=== PATIENT | female | born 1955 | race Caucasian/White ===

== ENCOUNTER → 2016-10-03 | Outpatient (CLI) | payer BC ==
[~2016-10-03] MED LIST: AMOX1TAB43 PO; ATV5 PO; FENO160T PO; GABA800T PO; LEVO125T72 PO; MONT1TAB3 PO; ZLF/50 PO
--- NOTE | 2016-10-04 15:40 | MAMMOGRAPHY REPORT ---
BILATERAL DIGITAL SCREENING MAMMOGRAM TOMOSYNTHESIS WITH CAD: 10/03/2016 CLINICAL HISTORY: Routine screening. Patient has no complaints. TECHNIQUE: Breast tomosynthesis in addition to standard 2D mammography was performed. Current study was also evaluated with a Computer Aided Detection (CAD) system. COMPARISON: Comparison is made to exams dated: 09/21/2009 mammogram and 09/24/2005 mammogram - [facility]. BREAST COMPOSITION: The tissue of both breasts is heterogeneously dense, which may obscure small ma sses. FINDINGS: There is a possible 6 mm mass seen within the left central breast, best seen on the tomosy nthesis images, for which spot compression tomosynthesis views and possible breast ultrasound are re commended for further evaluation. The remainder of both breasts are stable compared to prior exams, without suspicious masses, calcifi cations, or areas of architectural distortion noted. IMPRESSION: ACR BI-RADS CATEGORY 0: INCOMPLETE EVALUATION: NEED ADDITIONAL IMAGING EVALUATION Possible left breast mass, for which additional imaging evaluation is recommended. The patient will be called to schedule an appointment. Approximately 10% of breast cancers are not detected with mammography. A negative mammographic repor t should not delay biopsy if a clinically suggestive mass is present. Halle Marin M.D. ah/:10/03/2016 16:33:18 Window Installation Subcontractor: rTista SALCEDO(Tash)(M), [facility] letter sent: Addl Imaging 0 BI-RADS Code: ACR BI-RADS Category 0: Incomplete Evaluation: Need Additional Imaging Evaluation
--- NOTE | 2016-10-07 10:48 | CODING QUERY MEDICAL NECESSITY ---
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 Please provide a supporting diagnosis for the following test/procedure listed below next to the test name along with your signature. *If there is no additional diagnosis for this patient that would support the following test/procedure please document that below next to the test/procedure. Test(s)/Procedure(s) that require a supporting diagnosis: * ([id number]) DXA BONE DENSITY, AXIAL DIAGNOSIS: DATE OF SERVICE: 10/03/16 Provider Signature: Date: Thank you Hawk Carrasco [facility] Information Management Once completed, please kindly fax back to [phone] For questions please call [phone]
== END | disposition home or self-care (01) ==
LOC: C.MAMM 11:14
PROVIDERS: ATTEND Nurse Practitioner Family
DX: Z12.31 Encounter for screening mammogram for malignant neoplasm of breast (principal); N63 Unspecified lump in breast; Z13.820 Encounter for screening for osteoporosis

== ENCOUNTER → 2016-10-11 | Outpatient (CLI) | payer BC ==
--- NOTE | 2016-10-11 15:07 | MAMMOGRAPHY REPORT ---
UNILATERAL LEFT DIGITAL DIAGNOSTIC MAMMOGRAM TOMOSYNTHESIS AND TARGETED LEFT ULTRASOUND: 10/11/2016 CLINICAL HISTORY: Callback from screening mammogram for left breast mass. TECHNIQUE: Breast tomosynthesis in addition to standard 2D mammography was performed. Spot tasia ian left CC and MLO tomosynthesis images including C views were obtained. COMPARISON: Comparison is made to exams dated: 10/03/2016 mammogram, 09/21/2009 mammogram, and 09/25/19 06 mammogram - [facility]. BREAST COMPOSITION: The tissue of the left breast is heterogeneously dense, which may obscure small masses. FINDINGS: Spot compression views demonstrate a persistent oval partially circumscribed and partiall y obscured 6 mm mass seen within the left central/6:00 breast. Targeted ultrasound was performed of the left central/6:00 breast. In the left breast at 6:00, 1 cm from the nipple, there is an oval a nechoic circumscribed mass which measures 5 x 5 mm. This is felt to correspond with the mammographi c mass and is consistent with a benign simple cyst. Other smaller cysts were seen during the exam, including a circumscribed 3 mm anechoic cyst and a circumscribed hypoechoic 3 mm cyst in the left fuentes perior subareolar region. No suspicious masses are evident. IMPRESSION: ACR BI-RADS CATEGORY 2: BENIGN, TARGETED ULTRASOUND ACR BI-RADS CATEGORY 2: BENIGN Benign 5 mm simple cyst in the left breast at 6:00 on ultrasound, which corresponds with the mammogr aphic mass. There is no mammographic or targeted sonographic evidence of malignancy. A 1 year scree margaret mammogram is recommended. The patient has been verbally notified of the results. Approximately 10% of breast cancers are not detected with mammography. A negative mammographic repor t should not delay biopsy if a clinically suggestive mass is present. Halle Marin M.D. /:10/11/2016 12:03:15 Derrick Man: Trista Child, [facility] letter sent: Normal 1/2 BI-RADS Code: ACR BI-RADS Category 2: Benign Ultrasound BI-RADS: ACR BI-RADS Category 2: Benign
== END | disposition home or self-care (01) ==
LOC: C.MAMM 10:47
PROVIDERS: ATTEND Nurse Practitioner Family
DX: N63 Unspecified lump in breast (principal)

== ENCOUNTER → 2017-04-09 | Outpatient (CLI) | payer BC ==
--- NOTE | 2017-04-09 17:27 | DIAGNOSTIC IMAGING REPORT ---
CT SCAN OF THE ABDOMEN AND PELVIS WITHOUT IV CONTRAST CLINICAL HISTORY: Left lower quadrant abdominal pain. COMPARISON STUDY: Abdominal CT dated 06/13/2016. TECHNIQUE: CT scan of the abdomen and pelvis is performed from the lung bases to the proximal femora. Images are reviewed in the axial, sagittal, and coronal planes. IV contrast was not administered for this examination as per the referring clinician. Note that the examination was performed in suboptimal fashion without IV contrast. Oral contrast was utilized. The examination is also degraded by streak artifact from the neurostimulator device. A dose lowering technique was utilized adhering to the principles of ALARA. CT DOSE: 543.11 mGy.cm FINDINGS: Lung bases: The heart is normal in size and there is trace pericardial fluid. The lung bases are clear noting mild basilar atelectasis. Liver: The unenhanced liver is normal in size, contour, and attenuation. There is no intrahepatic biliary ductal dilatation. Hepatic cysts measure up to 1.8 cm. Additional subcentimeter hepatic hypodensities also likely represent cysts but are too small for definitive characterization. Gallbladder: Unremarkable. Spleen: Evaluation of the spleen is degraded by streak artifact. Normal in size and attenuation. Pancreas: The unenhanced pancreas is atrophic and grossly unremarkable. Adrenal glands: Unremarkable. Kidneys: The unenhanced kidneys demonstrate cortical atrophy and are without hydronephrosis. A 6 mm nonobstructing calculus is present in the left lower pole. No right renal calculi are identified. There is no evidence of contour deforming renal mass lesion. Abdominal vasculature: The abdominal aorta is normal in course and caliber noting moderate atherosclerotic calcification. Bowel: There is mild colonic diverticulosis without CT evidence of acute diverticulitis. There is mild colonic fecal retention. No bowel obstruction is seen. The appendix is well-visualized and normal. Peritoneum: There is no intraperitoneal free air or abdominal ascites. There is a small fat-containing umbilical hernia. Lymphadenopathy: None. Pelvic viscera: The bladder, uterus, and adnexa are normal as visualized. Skeletal structures: The skeletal structures are osteopenic. No lytic or blastic lesions are seen. A neurostimulator device is present in the soft tissues of the left lower back. Leads enter the central canal at the thoracolumbar junction. IMPRESSION: 1. Suboptimal examination without IV contrast. 2. There are no acute infectious or inflammatory findings in the abdomen or pelvis. 3. Mild colonic diverticulosis without CT evidence of acute diverticulitis. 4. Nonobstructing left renal calculus. 5. Additional findings as above. Electronically signed by: Berry Vegas M.D. 04/09/2017 5:26 PM Dictated Date/Time: 04/09/2017 5:18 PM
== END | disposition home or self-care (01) ==
LOC: C.CTS 14:48
PROVIDERS: ATTEND Colon & Rectal Surgery
DX: K57.92 Diverticulitis of intestine, part unspecified, without perforation or abscess without bleeding (principal); K57.30 Diverticulosis of large intestine without perforation or abscess without bleeding; N20.0 Calculus of kidney

== ENCOUNTER 2019-01-05 17:05 | Inpatient (IN) ==
[2019-01-05] MEDS ORDERED: SODIUM CHLORIDE 0.9% 1000ML 1,000 ML IV ONE (17:13)
[2019-01-05] MEDS ORDERED: ONDANSETRON INJ 2 MG/ML 2 ML VIAL IV STA (17:13)
[2019-01-05] MEDS ORDERED: KETOROLAC TROMETHAMINE 15 MG/ML VIAL IV STA (17:13)
[2019-01-05 17:44] LABS: Basophils # (auto) 0.01 K/uL (0-0.2); Basophils % (auto) 0.2 %; Eosinophils # (auto) 0.06 K/uL (0-0.5); Eosinophils % (auto) 1.3 %; Hematocrit (blood only) 36.1 % (37-47); Hemoglobin 12.2 g/dL (12.0-16.0); Lymphocytes # (auto) 1.44 K/uL (1.2-3.4); Lymphocytes % (auto) 31.6 %; Mean Corpuscular Hemoglobin 27.8 pg (25-34); Mean Corpuscular Hgb Conc 33.8 g/dL (32-36); Mean Corpuscular Volume 82.2 fL (80-100); Monocytes # (auto) 0.45 K/uL (0.11-0.59); Monocytes % (auto) 9.9 %; Platelet Count 226 K/uL (130-400); RDW Coefficient of Variation 13.1 % (11.5-14.5); RDW Standard Deviation 39.8 fL (36.4-46.3); Red Blood Count 4.39 M/uL (4.2-5.4); White Blood Count 4.56 K/uL (4.8-10.8)
[2019-01-05 17:49] LABS: Appearance Urine Turbid (Clear); Bacteria Urine Automated Negative (Negative); Bilirubin Urine Negative (Negative); Blood Urine Negative (Negative); Color Urine Dark Yellow; Epithelial Cell Urine Auto >30 /lpf (0-5); Glucose Urine UA Negative (Negative); Ketones Urine Trace (Negative); Leukocyte Esterase Urine Negative (Negative); Nitrite Urine Negative (Negative); Protein Urine Negative (Negative); RBC Urine Automated 0-4 /hpf (0-4); Specific Gravity Urine 1.026 (1.000-1.030); Urobilinogen Urine Negative (Negative); pH Urine 5.5 (4.5-7.5)
[2019-01-05 18:00] LABS: BUN Creatinine Ratio 10.3 (10-20); Bilirubin Direct 0.1 mg/dl (0-0.2); Creatinine Clr Calc Pharmacy 44.4 ml/min; Est GFR (African American) 46.7; Est GFR (Non-African American) 40.3; Potassium 3.9 mmol/L (3.5-5.1)
[2019-01-05 18:01] LABS: Calcium Oxalate Crystals Urine Present (None Prsent)
[2019-01-05 18:03] LABS: Bilirubin,Total 0.3 mg/dl (0.2-1); Total Protein 6.7 gm/dl (6.4-8.2)
--- NOTE | 2019-01-05 18:35 | Emergency Department Note ---
Entered by Maryan Reynolds acting as a scribe for History of Present Illness General Chief complaint: Kidney Stone Stated complaint: PAIN, VOMITING, EXHAUSTION, KIDNEY STONE Time Seen by Provider: 01/05/19 17:12 Source: patient History of Present Illness Onset (ago): day(s) (yesterday) Location: abdomen Pain Consistency: + other (persistent) Maximum Pain Intensity: 7 Quality: + other (kidney stone) Associated symptoms: + denies other symptoms (dysuria, hematuria), + nausea/vomiting and + other (left lower abdominal pain, hot flashes, dry heaving); no fever/chills (fever) The patient is a 63 year old female who presents to the Emergency Room with complaints of persistent kidney stone pain starting yesterday. Pain is located left lower quadrant of her abdomen. The patient states that she was in the ED yesterday and was diagnosed with a kidney stone. She reports that when she left last night she was doing fine, but this morning when she got up, she had intermittent waves of nausea and vomiting. She notes that she also had hot flashes. She states that she has tried eating and cannot keep anything down. She reports that it is to the point that she just dry heaves. No hematemesis or coffee-ground emesis. The patient complains of left lower abdominal pain. The p atient denies fever, dysuria, and hematuria. Home Medications Home Medications Medication Instructions Recorded Confirmed Type fenofibrate 150 mg PO DAILY 01/04/19 01/05/19 History fluticasone propion-salmeterol 1 inh INHALATION BID 01/04/19 01/05/19 History gabapentin 400 mg PO HS 01/04/19 01/05/19 History levothyroxine 125 mcg PO DAILY 01/04/19 01/05/19 History montelukast 10 mg PO DAILY 01/04/19 01/05/19 History sulfamethoxazole-trimethoprim 1 tab PO Q12H #7 tab 01/04/19 01/05/19 Rx [Bactrim DS] tamsulosin [Flomax] 0.4 mg PO HS #7 cap 01/04/19 01/05/19 Rx hydrocodone-acetaminophen [[place]] 1 tab PO Q4H PRN 01/05/19 01/05/19 History ondansetron HCl [Zofran] 4 mg PO Q6H PRN 01/05/19 01/05/19 History Allergies Allergy/AdvReac Type Severity Reaction Status Date / Time bupropion Allergy Intermediate Tachycardia Verified 01/04/19 16:03 chlorhexidine Allergy Unknown Rash Verified 01/04/19 16:03 mold Allergy Unknown . Verified 01/04/19 16:03 pollen extracts Allergy Unknown . Verified 01/04/19 16:03 levofloxacin AdvReac Severe Leg pain Verified 01/04/19 16:03 Past Med/Surg History Medical History Calculus, ureteral (Acute) Bronchitis (Acute) Spinal cord stimulator status (Chronic) Liver cyst (Chronic) Psoriasis (Chronic) Acute diverticulitis (Acute) Cellulitis Diverticulitis large intestine (Acute 05/10/14) Patella fracture (Acute) UTI (lower urinary tract infection) (Acute) Hypothyroidism Family History Other Cancer Heart disease Lung disease Social History Preferred Language: Tajik marital status: Current Living Situation: Alone current occupational status: retired Feels Safe at Home: Yes Smoking Status: Never smoker Review of Systems See HPI for pertinent positives & negatives. and A total of 10 systems reviewed and were otherwise negative Physical Exam Vital Signs Vital Signs - 24 hr 01/05/19 17:09 Temperature 37.0 C Temperature Source Oral Sepsis Recent Fever Within 48 Hours No Sepsis New/Unexplained Change in Mental Status No Sepsis Action Taken by Nursing No Action Required Pulse Rate 112 H Respiratory Rate 18 Respiratory Effort / Characteristics Non-Labored Spontaneous Respiratory Depth Normal Blood Pressure 133/75 Blood Pressure Mean 94 Blood Pressure Position Sitting Pulse Oximetry 95 Oxygen Delivery Method Room Air GENERAL: She is oriented to person, place, and time. She appears well-developed and well-nourished. She does not appear distressed. HENT: Exam performed. - Head: Normocephalic and atraumatic. - Right Ear: External ear normal. No mastoid tenderness. - Left Ear: External ear normal. No mastoid tenderness. - Mouth/Throat: The oropharynx is clear and moist. No trismus in the jaw. No dental abscesses or uvula swelling. No oropharyngeal exudate or tonsillar abscesses. EYES: Conjunctivae and EOM are normal. Pupils are equal, round, and reactive to light. Right eye exhibits no discharge. Left eye exhibits no discharge. No scleral icterus. NECK: Normal range of motion. Neck supple. No JVD present. No spinous process tenderness present. No carotid bruit present. No rigidity. No tracheal deviation and normal range of motion present. No Brudzinski's sign and no Kernig's sign noted. CV: Tachycardic rate, regular rhythm, normal heart sounds and intact distal pulses. There is no peripheral edema. Palpable radial pulses bue. PULM/CHEST: Effort normal and breath sounds normal. No respiratory distress. No stridor. She has no wheezes. She has no rales. Chest Wall: She exhibits no tenderness. ABD: The abdomen is soft. Bowel sounds are normal. She has no distension. No mass is present. There is LLQ pain on palpation. There is no rebound, no guarding, no Alva's sign and no tenderness at McBurney's point. Rovsig negative MUSC/SKEL: Normal range of motion. There is no peripheral edema, tenderness or deformity. LYMPH: No cervical adenopathy. NEURO: She is alert and oriented to person, place, and time. She has normal strength. No cranial nerve deficit or sensory deficit. Coordination and gait normal. GCS eye subscore is 4. GCS verbal subscore is 5. GCS motor subscore is 6. cerbellar tests wnl. SKIN: Skin is warm and dry. She is not diaphoretic. PSYCH: She has a normal mood and affect. Her behavior is normal. Judgment and thought content normal. Course 1713: I reviewed the EMR at this time. The patient was seen here in the ED yesterday. She had blood work and a urinalysis that were negative. Her CT of her abdomen showed a 5 mm nonobstructing stone in the left distal ureter. She was continued on antibiotics that were prescribed by the PCP. 1715: Past medical records reviewed. The patient was evaluated in room A11B. A complete history and physical exam was performed. 1809: Vital signs are stable. Labs are within normal limits. The patient still feels nauseous and is dry heaving. She states that she does not feel comfortable going home. She had to go home yesterday and deal with the nausea and vomiting before coming back to the ED. The patient will be bought in for observation for her kidney stone, nausea, and vomiting. I am going to [facility] urology and the hospitalist for admission. 1818: I discussed the patient's case with Dr. Isis Erickson. He agrees to be on consult and wants the patient admitted to the hospitalist. 182: I discussed the patient's case with Dr. María CHEN Hospitalist. She will evaluate the patient for further management. Consultations Consultation #1: I discussed the patient's case with Dr. Isis Erickson. He agrees to be on consult and wants the patient admitted to the hospitalist. Time: 18:18 Consultation #2: I discussed the patient's case with Dr. María CHEN Hospitalist. She will evaluate the patient for further management. Time: 18:21 Administered Medications Discontinued Medications Sodium Chloride (Nss 1000ml) 1,000 mls @ 999 mls/hr IV .Q1H1M ONE Stop: 01/05/19 18:13 Last Admin: 01/05/19 17:44 Dose: 999 mls/hr Documented by: [id number] Ketorolac Tromethamine (Toradol) 15 mg IV NOW STA Stop: 01/05/19 17:14 Last Admin: 01/05/19 17:44 Dose: 15 mg Documented by: [id number] Ondansetron HCl (Zofran) 4 mg IV NOW STA Stop: 01/05/19 17:14 Last Admin: 01/05/19 17:44 Dose: 4 mg Documented by: [id number] Medical Decision Making Medical Records Attestation: I reviewed the patient's medical records. Home Medications Current Medication List: was personally reviewed by tx Laboratory Data Attestation: I reviewed the patient's lab results. Result diagrams: 01/05/19 17:24 01/05/19 17:24 Lab Results 01/05/19 01/05/19 01/05/19 Range/Units 17:24 17:24 17:24 WBC 4.56 L (4.8-10.8) K/uL RBC 4.39 (4.2-5.4) M/uL Hgb 12.2 (12.0-16.0) g/dL Hct 36.1 L (37-47) % MCV 82.2 (80-100) fL MCH 27.8 (25-34) pg MCHC 33.8 (32-36) g/dL RDW Std Deviation 39.8 (36.4-46.3) fL RDW Coeff of Monika 13.1 (11.5-14.5) % Plt Count 226 (130-400) K/uL MPV 10.0 (7.4-10.4) fL Immature Gran % (Auto) 0.0 % Neut % (Auto) 57.0 % Lymph % (Auto) 31.6 % [place] % (Auto) 9.9 % Eos % (Auto) 1.3 % Baso % (Auto) 0.2 % Immature Gran # (Auto) 0.00 (0.00-0.02) K/uL Neut # (Auto) 2.60 (1.4-6.5) K/uL Lymph # (Auto) 1.44 (1.2-3.4) K/uL [place] # (Auto) 0.45 (0.11-0.59) K/uL Eos # (Auto) 0.06 (0-0.5) K/uL Baso # (Auto) 0.01 (0-0.2) K/uL Sodium 140 (136-145) mmol/L Potassium 3.9 (3.5-5.1) mmol/L Chloride 106 (98-107) mmol/L Carbon Dioxide 27 (21-32) mmol/L Anion Gap 7.0 (3-11) BUN 14 (7-18) mg/dl Creatinine 1.38 H (0.6-1.2) mg/dl Est Cr Clr Drug Dosing 44.4 ml/min Est GFR ( Amer) 46.7 Est GFR (Non-Af Amer) 40.3 BUN/Creatinine Ratio 10.3 (10-20) Glucose 111 H (70-99) mg/dl Lactate 1.3 (0.4-2.0) mmol/L Calcium 9.0 (8.5-10.1) mg/dl Total Bilirubin 0.3 (0.2-1) mg/dl Direct Bilirubin 0.1 (0-0.2) mg/dl AST 16 (15-37) U/L ALT 19 (12-78) U/L Alkaline Phosphatase 71 (45-117) U/L Total Protein 6.7 (6.4-8.2) gm/dl Albumin 4.0 (3.4-5.0) gm/dl Lipase 144 (73-393) U/L Urine Color Urine Appearance (Clear) Urine pH (4.5-7.5) Ur Specific [place] (1.000-1.030) Urine Protein (Negative) Urine Glucose (UA) (Negative) Urine Ketones (Negative) Urine Blood (Negative) Urine Nitrite (Negative) Urine Bilirubin (Negative) Urine Urobilinogen (Negative) Ur Leukocyte Esterase (Negative) Urine WBC (Auto) (0-5) /hpf Urine RBC (Auto) (0-4) /hpf U Hyaline Cast (Auto) (0-5) /lpf U Epithel Cells (Auto) (0-5) /lpf Urine Bacteria (Auto) (Negative) Urine Crystals (None Prsent) Calcium Oxalate Crystal (None Prsent) 01/05/19 Range/Units 17:24 WBC (4.8-10.8) K/uL RBC (4.2-5.4) M/uL Hgb (12.0-16.0) g/dL Hct (37-47) % MCV (80-100) fL MCH (25-34) pg MCHC (32-36) g/dL RDW Std Deviation (36.4-46.3) fL RDW Coeff of Monika (11.5-14.5) % Plt Count (130-400) K/uL MPV (7.4-10.4) fL Immature Gran % (Auto) % Neut % (Auto) % Lymph % (Auto) % [place] % (Auto) % Eos % (Auto) % Baso % (Auto) % Immature Gran # (Auto) (0.00-0.02) K/uL Neut # (Auto) (1.4-6.5) K/uL Lymph # (Auto) (1.2-3.4) K/uL [place] # (Auto) (0.11-0.59) K/uL Eos # (Auto) (0-0.5) K/uL Baso # (Auto) (0-0.2) K/uL Sodium (136-145) mmol/L Potassium (3.5-5.1) mmol/L Chloride (98-107) mmol/L Carbon Dioxide (21-32) mmol/L Anion Gap (3-11) BUN (7-18) mg/dl Creatinine (0.6-1.2) mg/dl Est Cr Clr Drug Dosing ml/min Est GFR ( Amer) Est GFR (Non-Af Amer) BUN/Creatinine Ratio (10-20) Glucose (70-99) mg/dl Lactate (0.4-2.0) mmol/L Calcium (8.5-10.1) mg/dl Total Bilirubin (0.2-1) mg/dl Direct Bilirubin (0-0.2) mg/dl AST (15-37) U/L ALT (12-78) U/L Alkaline Phosphatase (45-117) U/L Total Protein (6.4-8.2) gm/dl Albumin (3.4-5.0) gm/dl Lipase (73-393) U/L Urine Color Dark Yellow Urine Appearance Turbid A (Clear) Urine pH 5.5 (4.5-7.5) Ur Specific [place] 1.026 (1.000-1.030) Urine Protein Negative (Negative) Urine Glucose (UA) Negative (Negative) Urine Ketones Trace H (Negative) Urine Blood Negative (Negative) Urine Nitrite Negative (Negative) Urine Bilirubin Negative (Negative) Urine Urobilinogen Negative (Negative) Ur Leukocyte Esterase Negative (Negative) Urine WBC (Auto) 1-5 (0-5) /hpf Urine RBC (Auto) 0-4 (0-4) /hpf U Hyaline Cast (Auto) 1-5 (0-5) /lpf U Epithel Cells (Auto) >30 H (0-5) /lpf Urine Bacteria (Auto) Negative (Negative) Urine Crystals Calcium Oxalate A (None Prsent) Calcium Oxalate Crystal Present A (None Prsent) Blood Pressure Blood Pressure Findings: Normal blood pressure Blood Pressure Disposition: did not require urgent referral MDM Narrative 1713: I reviewed the EMR at this time. The patient was seen here in the ED yesterday. She had blood work and a urinalysis that were negative. Her CT of her abdomen showed a 5 mm nonobstructing stone in the left distal ureter. She was continued on antibiotics that were prescribed by the PCP. 1715: Past medical records reviewed. The patient was evaluated in room A11B. A complete history and physical exam was performed. 1809: Vital signs are stable. Labs are within normal limits. The patient still feels nauseous and is dry heaving. She states that she does not feel comfortable going home. She had to go home yesterday and deal with the nausea and vomiting before coming back to the ED. The patient will be bought in for observation for her kidney stone, nausea, and vomiting. I am going to page urology and the hospitalist for admission. 1817: I discussed the patient's case with Dr. Pearson- Urology. He agrees to be on consult and wants the patient admitted to the hospitalist. 1820: I discussed the patient's case with Dr. Munguia- [facility] Hospitalist. She will evaluate the patient for further management. Impression & Plan Intractable nausea and vomiting, Intractable pain, Kidney stone Discharge Plan Visit Data Chief Complaint: Kidney Stone Stated Complaint: PAIN, VOMITING, EXHAUSTION, KIDNEY STONE ED Provider: Juan Live Discharge Problem: Intractable nausea and vomiting, Intractable pain, Kidney stone Patient Disposition: Being Evaluated by Hospitalist Forms Stand Alone Forms: My [facility] [address] Prescriptions Prescriptions: No Action fluticasone propion-salmeterol 250-50 mcg/dose blister with device 1 inh inhalation BID RF: 0 gabapentin 800 mg tablet 400 mg PO HS RF: 0 levothyroxine 125 mcg tablet 125 mcg PO DAILY RF: 0 montelukast 10 mg tablet 10 mg PO DAILY RF: 0 fenofibrate 160 mg tablet 150 mg PO DAILY RF: 0 sulfamethoxazole-trimethoprim [Bactrim DS] 800-160 mg tablet 1 tab PO Q12H Qty: 7 RF: 0 tamsulosin [Flomax] 0.4 mg capsule 0.4 mg PO HS Qty: 7 RF: 0 hydrocodone-acetaminophen [[place]] 5-325 mg tablet 1 tab PO Q4H PRN (Reason: Pain) RF: 0 ondansetron HCl [Zofran] 4 mg tablet 4 mg PO Q6H PRN (Reason: Nausea And Vomiting) RF: 0 Referrals Referrals: Tremaine Motley MD [Primary Care Provider] - Discharge Problem: Intractable nausea and vomiting Qualifiers: Vomiting type: unspecified Qualified Code(s): R11.2 - Nausea with vomiting, unspecified The scribe's documentation has been prepared under my direction and personally reviewed by me in its entirety. I confirm that the note above accurately reflects all work, treatment, procedures, and medical decision making performed by me.
--- NOTE | 2019-01-05 20:51 | History & Physical Report ---
Date of Service January 05, 2019 Assessment & Plan (1) Calculus, ureteral: Admit patient for observation at medicine. -Started Unasyn for enterococcus positive urine culture at PCPs office. -Start IV normal saline and 125 cc/h -Pain management with Percocet as needed and Toradol. -Urology follows, discussed with -Keep n.p.o. after midnight for possible procedure tomorrow/lithotripsy. -Started famotidine 20 mg IV renally dosed for GERD. -Vital signs per routine -Strain urine daily -CBC CMP in a.m. and replenish electrolytes. -Zofran 4 mg IV every 4 hours as needed for nausea and vomiting. -Continue tamsulosin for better urinary flow Present on Admission?: Yes (2) Acute kidney injury: Avoid nephrotoxic agents. Continue copious IV fluid hydration. No hydronephrosis found on the CT of the abdomen. Present on Admission?: Yes (3) Intractable nausea and vomiting: As the above Present on Admission?: Yes (4) Intractable pain: As the above Present on Admission?: Yes (5) Kidney stone: As the above (6) Bronchitis: Stable, continue fluticasone propion salmetrol, montelukast. Present on Admission?: Yes (7) Diarrhea: Diarrhea could be caused by recent use of antibiotics or possibly laxatives. Patient stated that she was constipated but did not use any medication as a laxative. -Plan to collect stool for ova parasites, C. difficile, stool culture. Present on Admission?: Yes (8) Hypertriglyceridemia: Stable , continue fenofibrate 150 mg p.o. daily Present on Admission?: Yes (9) Insomnia: Stable continue gabapentin 400 mg nightly. Present on Admission?: Yes (10) DVT (deep venous thrombosis): Heparin 5000 units every 8 hours. History of Present Illness Primary Care Provider: Tremaine Motley MD Patient is a 63 years old female with past medical history of diverticulitis of the large intestine, patellar fracture, psoriasis, bronchitis, recurrent urinary tract infections, who presented to the emergency room with a complaint of protracted nausea and vomiting that started yesterday and continued whole day long. Patient was seen 7 days ago by her PCP and started on Spectra for urinary tract infection. 3 days later urinary culture was available which showed enterococcus and patient was switched to Bactrim. So patient has been regularly taking Bactrim since Friday last week and this morning she started to have severe nausea and vomiting. Patient was yesterday in the ER and CT scan shown a 1. A 5 mm nonobstructing stone within the distal left ureter. No left-sided hydronephrosis. 2. No bowel wall thickening or obstruction. 3. Normal appendix. 4. Stable 7 mm nodule within the right middle lobe. This demonstrates greater than two-year stability and is therefore likely benign. Today labs showed creatinine of 1.38 GFR over 40.3, BUN of 14 hemoglobin of 12.2 hematocrit of 36.1 white blood cell count of 4.56, platelets 226. Er physician discussed the patient's case with Dr. Pearson- Urology. He agrees to be on consult and wants the patient admitted to the hospital and keep NPO after midnight for possible lithotripsy in the morning. Continue copious fluid IV hydration and started on antibiotics to cover for enterococcus/Unasyn. Allergies Allergy/AdvReac Type Severity Reaction Status Date / Time bupropion Allergy Intermediate Tachycardia Verified 01/04/19 16:03 chlorhexidine Allergy Unknown Rash Verified 01/04/19 16:03 mold Allergy Unknown . Verified 01/04/19 16:03 pollen extracts Allergy Unknown . Verified 01/04/19 16:03 levofloxacin AdvReac Severe Leg pain Verified 01/04/19 16:03 Home Medications Home Medications Medication Instructions Recorded Confirmed Type fenofibrate 150 mg PO DAILY 01/04/19 01/05/19 History fluticasone propion-salmeterol 1 inh INHALATION BID 01/04/19 01/05/19 History gabapentin 400 mg PO HS 01/04/19 01/05/19 History levothyroxine 125 mcg PO DAILY 01/04/19 01/05/19 History montelukast 10 mg PO DAILY 01/04/19 01/05/19 History sulfamethoxazole-trimethoprim 1 tab PO Q12H #7 tab 01/04/19 01/05/19 Rx [Bactrim DS] tamsulosin [Flomax] 0.4 mg PO HS #7 cap 01/04/19 01/05/19 Rx hydrocodone-acetaminophen [[place]] 1 tab PO Q4H PRN 01/05/19 01/05/19 History ondansetron HCl [Zofran] 4 mg PO Q6H PRN 01/05/19 01/05/19 History Past Med/Surg History Medical History Calculus, ureteral (Acute) Bronchitis (Acute) Spinal cord stimulator status (Chronic) Liver cyst (Chronic) Psoriasis (Chronic) Acute diverticulitis (Acute) Cellulitis Diverticulitis large intestine (Acute 05/10/14) Patella fracture (Acute) UTI (lower urinary tract infection) (Acute) Hypothyroidism Family History Other Cancer Heart disease Lung disease Social History Preferred Language: Amharic marital status: Current Living Situation: Alone current occupational status: retired Feels Safe at Home: Yes Smoking Status: Never smoker Review of Systems Review of Systems: All systems reviewed & are unremarkable except as noted in HPI & below Genitourinary: + dysuria, + urinary frequency and + flank pain Left flank pain positive costovertebral angle tenderness on the left. Physical Exam Constitutional: WD/WN, vitals as above well developed and well nourished Eyes: PERRL, conjunctivae normal, anicteric sclerae ENMT: external ear and nose normal, oropharynx normal Neck: trachea midline, no thyromegaly Respiratory: normal respiratory effort, lungs clear to auscultation Cardiovascular: RRR, no murmur, no edema Chest (Breasts): normal inspection/palpation of breasts Gastrointestinal (Abdomen): normal bowel sounds, soft, nontender, no hepatosplenomegaly Inspection/Auscultation: abdomen normal to inspection and normal bowel sounds Percussion/Palpation: normal to percussion Patient reports that she has diarrhea for 1 day after several days of constipation. Patient said that she did not take any laxative. Patient reports 5 or 6 diarrheas watery and foul-smelling. Musculoskeletal: no cyanosis or clubbing, extremities motor strength 5/5 Skin: no rashes, warm and dry Neurologic: patellar DTR's 2+ bilat, sensation intact Psychiatric: A+Ox3, euthymic affect Genitourinary: Costovertebral angle tenderness on the left. Lymphatic: no cervical or axillary lymphadenopathy Results & Data Vital Signs (Past 12 Hours) Vital Signs Temp Pulse Pulse Resp BP BP Pulse Ox 01/05/19 20:38 91 H 14 126/86 95 01/05/19 19:47 89 15 120/74 92 01/05/19 19:00 87 16 98/54 L 94 01/05/19 18:02 89 13 92 01/05/19 18:00 89 13 110/65 93 01/05/19 17:09 37.0 C 112 H 18 133/75 95 Code Status & VTE Plan Code Status Full Code VTE Prophylaxis Plan VTE Prophylaxis will be ordered: Yes PG Care Time/CCT Total # of Minutes Spent Total Time Spent with Patient: Total time spent is greater than 50% in c oordination of care (as documented) at patient's floor/unit and/or counseling patient: (1) Intractable nausea and vomiting Vomiting type: unspecified Qualified Code(s): R11.2 - Nausea with vomiting, unspecified
[2019-01-05] MEDS ORDERED: AMPICILLIN/SULBACTAM CONSULT ACTIVE PRN (20:54)
[2019-01-05] MEDS ORDERED: AMPICILLIN/SULBACTAM SOD 3,000 MG in 0.9 % SODIUM CHLORIDE 100 ML IV ONE (21:00)
[2019-01-05] MEDS ORDERED: FAMOTIDINE 20 MG in SYRINGE 3 ML IV SCH (21:36)
[2019-01-05] MEDS ORDERED: ONDANSETRON INJ 2 MG/ML 2 ML VIAL IV PRN (21:36)
[2019-01-05] MEDS ORDERED: MAGNESIUM HYDROXIDE SUSP 30 ML UDC PO PRN (21:36)
[2019-01-05] MEDS ORDERED: POLYETHYLENE (MIRALAX) 17 GM PACK PO PRN (21:36)
[2019-01-05] MEDS ORDERED: ALUMINUM/MAGNESIUM SUSP 30 ML UDC PO PRN (21:36)
[2019-01-05] MEDS ORDERED: ZOLPIDEM TARTRATE 5 MG TAB PO PRN (21:36)
[2019-01-05] MEDS ORDERED: ACETAMINOPHEN 325 MG TAB PO PRN (21:36)
[2019-01-05] MEDS: SODIUM CHLORIDE 0.9% 1000ML 1,000 ML IV SCH (22:09)
[2019-01-05] MEDS: TAMSULOSIN HCL 0.4 MG CAP PO SCH (22:16)
[2019-01-05] MEDS: GABAPENTIN 400 MG CAP PO SCH (22:16)
[2019-01-05] MEDS: HYDROCODONE/ACETAMOPHEN 5/325MG TAB PO PRN (22:17)
[2019-01-05] MEDS: FLUTICASONE/SALMETEROL 250/50 (ADVAIR) 14 PUFF/1 INHALER INH SCH (22:17)
[2019-01-05 22:26] LABS: INR 1.1 (0.9-1.1); Partial Thromboplastin Ratio 0.9; Partial Thromboplastin Time 25.7 Seconds (21.0-31.0); Prothrombin Time 10.8 Seconds (9.0-12.0)
[2019-01-06] MEDS: HEPARIN SOD 5,000 UNIT/0.5 ML VIAL SQ SCH ×3 (00:10→13:39)
[2019-01-06] MEDS: AMPICILLIN/SULBACTAM SOD 3,000 MG in 0.9 % SODIUM CHLORIDE 100 ML IV SCH ×3 (03:37→14:23)
[2019-01-06] MEDS: SODIUM CHLORIDE 0.9% 1000ML 1,000 ML IV SCH ×3 (06:13→21:54)
[2019-01-06] MEDS: LEVOTHYROXINE SODIUM 125 MCG TABLET PO SCH (06:13)
[2019-01-06] MEDS: MONTELUKAST SODIUM 10 MG TABLET PO SCH (08:22)
[2019-01-06] MEDS: FLUTICASONE/SALMETEROL 250/50 (ADVAIR) 14 PUFF/1 INHALER INH SCH ×2 (08:22→20:36)
--- NOTE | 2019-01-06 14:09 | Urology Consultation ---
Date of Consultation January 06, 2019 Assessment & Plan (1) Calculus, ureteral: 5mm distal left ureteral calculus. Discussed 5mm size and distal position - high likelihood of spontaneous passage. White count WNL, afebrile. Increase fluid intake today, IVF, Flomax to increase chances of spontaneous passage. Will check KUB tomorrow AM for visualization. NPO after midnight in the event that intervention is required tomorrow. Patient prefers to be scheduled for outpatient ESWL on Friday if possible. However, should she develop a fever at any time please page our service for acute intervention with stent. Will continue to follow. History of Present Illness Attending Physician: Juan A Sagastume MD History of Present Illness 63 YO female with ureteral stone. Patient reports feeling unwell x 1 week. Was seen at walk-in clinic last week due to persistent bladder pressure and was treated with a 5d course of Bactrim for suspected UTI. After antibiotic course, symptoms worsened including increased pressure, pain, nausea, and she reported to ER for evaluation. Her CT scan is reviewed and demonstrates a 5mm stone in her distal left ureter, no hydronephrosis. Has not seen a urologist in 10+ years, hx of stone with spontaneous passage. Reports feeling well this morning. Symptoms are well controlled with medication. No fevers/chills. WBCs WNL. Some minor bladder pressure/frequency is persisting. Continues to void spontaneously without difficulty. No hematuria. Allergies Allergy/AdvReac Type Severity Reaction Status Date / Time bupropion Allergy Intermediate Tachycardia Verified 01/04/19 16:03 chlorhexidine Allergy Unknown Rash Verified 01/04/19 16:03 mold Allergy Unknown . Verified 01/04/19 16:03 pollen extracts Allergy Unknown . Verified 01/04/19 16:03 levofloxacin AdvReac Severe Leg pain Verified 01/04/19 16:03 Home Medications Home Medications Medication Instructions Recorded Confirmed Type fenofibrate 150 mg PO DAILY 01/04/19 01/05/19 History fluticasone propion-salmeterol 1 inh INHALATION BID 01/04/19 01/05/19 History gabapentin 400 mg PO HS 01/04/19 01/05/19 History levothyroxine 125 mcg PO DAILY 01/04/19 01/05/19 History montelukast 10 mg PO DAILY 01/04/19 01/05/19 History sulfamethoxazole-trimethoprim 1 tab PO Q12H #7 tab 01/04/19 01/05/19 Rx [Bactrim DS] tamsulosin [Flomax] 0.4 mg PO HS #7 cap 01/04/19 01/05/19 Rx hydrocodone-acetaminophen [[place]] 1 tab PO Q4H PRN 01/05/19 01/05/19 History ondansetron HCl [Zofran] 4 mg PO Q6H PRN 01/05/19 01/05/19 History Patient History Medical History DVT (deep venous thrombosis) Acute kidney injury (HAYDE) with acute tubular necrosis (ATN) Insomnia Hypertriglyceridemia Diarrhea Calculus, ureteral (Acute) Intractable nausea and vomiting (Acute) Intractable pain (Acute) Kidney stone (Acute) Bronchitis (Acute) Bronchitis (Acute) Spinal cord stimulator status (Chronic) Liver cyst (Chronic) Psoriasis (Chronic) Acute diverticulitis (Acute) Cellulitis Diverticulitis large intestine (Acute 05/10/14) Patella fracture (Acute) UTI (lower urinary tract infection) (Acute) Hypothyroidism Family History Other Cancer Heart disease Lung disease Social History Preferred Language: Korean Communication Ability: Effective Beliefs That Will Affect Care: None marital status: Current Living Situation: Family current occupational status: retired Feels Safe at Home: Yes Smoking Status: Never smoker Hx Alcohol Use: No Hx Substance Use: No Review of Systems Constitutional: no fever and no chills Eyes: no worsening vision Ear, Nose, Mouth, Throat: no hearing loss Respiratory: no dyspnea Cardiovascular: no chest pain Gastrointestinal: + nausea; no abdominal pain and no vomiting Genitourinary: + urinary frequency; no difficulty urinating and no hematuria Musculoskeletal: no back pain Psychiatric: no problem reported Endocrine: + fatigue Physical Exam Constitutional: WD/WN, vitals as above ENMT: Ears: no hearing impairment Neck: normal visual inspection Respiratory: normal respiratory effort; does not use accessory muscles Cardiovascular: Vessels: no JVD Gastrointestinal (Abdomen): Percussion/Palpation: abdomen soft; abdomen nontender Skin: no rashes, warm and dry Psychiatric: A+Ox3, euthymic affect Genitourinary: no CVA tenderness Speculum/Bimanual Exam: bladder normal to palpation Results & Data Vital Signs (Past 12 Hours) Vital Signs Temp Pulse Resp BP Pulse Ox 01/06/19 07:48 36.9 C 79 13 100/58 L 94
--- NOTE | 2019-01-06 14:26 | Hospitalist Progress Note ---
Date of Service January 06, 2019 Assessment & Plan (1) Calculus, ureteral: CT a/p on 01/04 showed 5 mm nonobstructing stone within the distal left ureter. No left-sided hydronephrosis. UA on 01/05 was negative for infection or blood. - Continue Unasyn for now - Normal diet - IV fluids to try to pass the stone normally - Urology following - Discussed with Ms. Kendall on 01/06 - Strain urine daily - Continue tamsulosin (2) Acute kidney injury: Baseline Cr is ~1.0. On admission, Cr was 1.2, then 1.4. No hydronephrosis found on the CT of the abdomen. - Avoid nephrotoxic agents. - Continue copious IV fluid hydration. - Monitor Cr (3) Bronchitis: Stable. - Continue fluticasone propionate/ salmetrol, montelukast. (4) Diarrhea: Diarrhea could be caused by recent use of antibiotics or possibly laxatives. Patient stated that she was constipated but did not use any medication as a laxative. - C. diff testing was negative on 01/05 - Follow up results of stool for ova & parasites (5) Hypertriglyceridemia: Stable. - Continue fenofibrate 150 mg p.o. daily (6) Insomnia: Stable continue gabapentin 400 mg nightly. (7) DVT (deep venous thrombosis): Heparin 5000 Q12h Subjective Reports a "pressure" sensation near the bladder. Some occ. sharp pain the left flank. Review of Systems Review of Systems: All systems reviewed & are unremarkable except as noted in HPI & below Physical Exam Constitutional: WD/WN, vitals as above Eyes: EOM intact bilaterally; no conjunctival abnormality ENMT: external ear and nose normal, oropharynx normal Neck: trachea midline, no thyromegaly normal visual inspection Respiratory: normal respiratory effort, lungs clear to auscultation no respiratory distress Cardiovascular: RRR, no murmur, no edema Gastrointestinal (Abdomen): Inspection/Auscultation: abdomen normal to inspection; abdomen not distended Musculoskeletal: no cyanosis or clubbing, extremities motor strength 5/5 Skin: no rashes, warm and dry Neurologic: moves all extremities and awake Psychiatric: Orientation: alert, oriented to person and cooperative Results & Data Vital Signs (Past 12 Hours) Vital Signs Temp Pulse Resp BP Pulse Ox 01/06/19 07:48 36.9 C 79 13 100/58 L 94 PG Care Time/CCT Total # of Minutes Spent Total Time Spent with Patient: Total time spent is greater than 50% in coordination of care (as documented) at patient's floor/unit and/or counseling patient:
[2019-01-06] MEDS: PHENAZOPYRIDINE HCL 100 MG TAB PO PRN ×2 (15:39→23:32)
[2019-01-06] MEDS: AMOXICILLIN 500 MG CAP PO SCH (17:25)
[2019-01-06] MEDS: GABAPENTIN 400 MG CAP PO SCH (20:36)
[2019-01-06] MEDS: TAMSULOSIN HCL 0.4 MG CAP PO SCH (20:37)
[2019-01-06] MEDS ORDERED: HEPARIN SOD 5,000 UNIT/0.5 ML VIAL SQ SCH (21:00)
[2019-01-06] MEDS: HYDROCODONE/ACETAMOPHEN 5/325MG TAB PO PRN (23:32)
[2019-01-07] MEDS: HYDROCODONE/ACETAMOPHEN 5/325MG TAB PO PRN ×2 (04:03→20:04)
[2019-01-07] MEDS: SODIUM CHLORIDE 0.9% 1000ML 1,000 ML IV SCH ×3 (05:53→22:05)
[2019-01-07] MEDS: LEVOTHYROXINE SODIUM 125 MCG TABLET PO SCH (06:25)
[2019-01-07 06:44] LABS: Hematocrit (blood only) 32.8 % (37-47); Hemoglobin 10.5 g/dL (12.0-16.0); Mean Corpuscular Hemoglobin 27.3 pg (25-34); Mean Corpuscular Volume 85.2 fL (80-100); Platelet Count 194 K/uL (130-400); RDW Coefficient of Variation 13.5 % (11.5-14.5); RDW Standard Deviation 42.1 fL (36.4-46.3); Red Blood Count 3.85 M/uL (4.2-5.4); White Blood Count 4.34 K/uL (4.8-10.8)
[2019-01-07 07:12] LABS: BUN Creatinine Ratio 10.8 (10-20); Calcium 8.3 mg/dl (8.5-10.1); Creatinine Clr Calc Pharmacy 59.9 ml/min; Est GFR (African American) 67.3; Est GFR (Non-African American) 58.1; Magnesium 1.8 mg/dl (1.8-2.4)
--- NOTE | 2019-01-07 07:19 | XRay Report ---
KUB HISTORY: Follow up study in a patient with 5 mm calculus of the distal left ureter Kidney stone COMPARISON: CT abdomen and pelvis 01/04/2019 FINDINGS: The bowel gas pattern is non-obstructive. Retained enteric contrast is noted within the lar ge bowel. There is no organomegaly. There is a linear 5 mm calcified density about the left hemipelv is which likely correlates with the previously described distal ureteral calculus. Multiple pelvic ba sin phlebolith are also redemonstrated. A stimulator device projects over the left flank with leads p rojecting about the thoracic spine, outside the [id number]. No pneumoperitoneum or pneumatosis. No fracture. IMPRESSION: 1. Unchanged 5 mm calculus of the distal left ureter. 2. Nonobstructive bowel gas pattern. Electronically signed by: Josh Rojas M.D. 01/07/2019 7:17 AM
[2019-01-07] MEDS: PHENAZOPYRIDINE HCL 100 MG TAB PO PRN (08:12)
[2019-01-07] MEDS: AMOXICILLIN 500 MG CAP PO SCH (08:12)
[2019-01-07] MEDS: FLUTICASONE/SALMETEROL 250/50 (ADVAIR) 14 PUFF/1 INHALER INH SCH ×2 (08:12→20:08)
[2019-01-07] MEDS: MONTELUKAST SODIUM 10 MG TABLET PO SCH (08:12)
[2019-01-07] MEDS: FENOFIBRATE NANOCRYSTALLIZED 145 MG TABLET PO SCH (09:10)
--- NOTE | 2019-01-07 09:59 | Urology Progress Note ---
Date of Service January 07, 2019 Assessment & Plan (1) Calculus, ureteral: 5mm distal left ureteral calculus. Will coordinate cystoscopy, left ureteroscopy, laser litho, stent placement this afternoon with Dr. Garcia. Remain NPO. Pre-op CXR & EKG. ATTENDING NOTE: Plan to proceed with stone treatment as listed above. Subjective 63 YO female, 5mm distal left ureteral calculus. Renal colic persisting. Afebrile. No nausea/vomiting. Voiding spontaneously. Remains NPO. After discussion with Dr. Bailey yesterday is requesting ureteroscopy today. Review of Systems Review of Systems: All systems reviewed & are unremarkable except as noted in HPI & below Physical Exam Physical Exam: WN/WD NAD. Resp effort normal. No JVD. Abd soft/nontender. A&O x3, appropriate affect. : bladder nontender/nondistended. Results & Data Vital Signs (Past 12 Hours) Vital Signs Temp Pulse Resp BP BP Pulse Ox 01/07/19 07:15 36.8 C 74 18 114/66 93 01/06/19 23:08 36.7 C 74 16 110/65 95
--- NOTE | 2019-01-07 11:34 | Anesthesiology Consultation ---
Date of Service January 07, 2019 Assessment & Plan (1) Encounter for pre-operative examination: Chart Review Chart Review: Acceptable Risk for Surgery History Surgery Operation Date: 01/07/19 14:35 Proposed Procedures p Cystoscopy, Left Ureteroscopy, Laser Lithotripsy, Left Stent Placement - Rishabh Garcia II, DO Height/Weight Height: 5 ft 6 in Weight: 81.2 kg Allergies Allergy/AdvReac Type Severity Reaction Status Date / Time bupropion Allergy Intermediate Tachycardia Verified 01/04/19 16:03 chlorhexidine Allergy Unknown Rash Verified 01/04/19 16:03 mold Allergy Unknown . Verified 01/04/19 16:03 pollen extracts Allergy Unknown . Verified 01/04/19 16:03 levofloxacin AdvReac Severe Leg pain Verified 01/04/19 16:03 Medications Home Medications Medication Instructions Recorded Confirmed Last Taken fenofibrate 150 mg PO DAILY 01/04/19 01/05/19 01/04/19 fluticasone propion-salmeterol 1 inh INHALATION BID 01/04/19 01/05/19 01/04/19 gabapentin 400 mg PO HS 01/04/19 01/05/19 01/04/19 levothyroxine 125 mcg PO DAILY 01/04/19 01/05/19 01/04/19 montelukast 10 mg PO DAILY 01/04/19 01/05/19 01/04/19 sulfamethoxazole-trimethoprim 1 tab PO Q12H #7 tab 01/04/19 01/05/19 01/05/19 11:00 [Bactrim DS] tamsulosin [Flomax] 0.4 mg PO HS #7 cap 01/04/19 01/05/19 Unknown hydrocodone-acetaminophen [[place]] 1 tab PO Q4H PRN 01/05/19 01/05/19 Unknown ondansetron HCl [Zofran] 4 mg PO Q6H PRN 01/05/19 01/05/19 Unknown Active Medications Generic Name Dose Route Start Last Admin Trade Name Freq PRN Reason Stop Dose Admin Hydrocodone Bitart/Acetaminophen 1 tab 01/05/19 21:36 01/07/19 04:03 [place] 5/325 PO 01/19/19 21:35 1 tab Q4H PRN Administration Pain Fenofibrate 145 mg 01/07/19 09:00 01/07/19 09:10 T[place]or PO 02/06/19 08:59 145 mg DAILY MARIA C Administration Gabapentin 400 mg 01/05/19 21:36 01/06/19 20:36 Neurontin PO 02/04/19 21:35 400 mg HS MARIA C Administration Sodium Chloride 1,000 mls @ 125 mls/hr 01/05/19 22:00 01/07/19 05:56 Nss 1000ml IV 02/04/19 21:59 125 mls/hr .Q8H MARIA C Infusion Levothyroxine Sodium 125 mcg 01/06/19 06:30 01/07/19 06:25 Synthroid PO 02/05/19 06:29 125 mcg DAILYBB MARIA C Administration Montelukast Sodium 10 mg 01/06/19 09:00 01/07/19 08:12 Singulair PO 02/05/19 08:59 10 mg DAILY MARIA C Administration Phenazopyridine HCl 100 mg 01/06/19 14:51 01/07/19 08:12 Pyridium PO 02/05/19 14:50 100 mg TID PRN Administration Dysuria Fluticasone/Salmeterol 1 puffs 01/05/19 21:36 01/07/19 08:12 Advair Diskus 250/50 INH 02/04/19 21:35 1 puffs BID MARIA C Administration Tamsulosin HCl 0.4 mg 01/05/19 21:36 01/06/19 20:37 Flomax PO 02/04/19 21:35 0.4 mg HS MARIA C Administration NPO Date Last Intake of Fluids: 01/05/19 Time Last Intake of Fluids: 23:59 Date Last Intake of Solids: 01/05/19 Time Last Intake of Solids: 23:59 Past Medical History Medical History DVT (deep venous thrombosis) Acute kidney injury (HAYDE) with acute tubular necrosis (ATN) Insomnia Hypertriglyceridemia Diarrhea Calculus, ureteral (Acute) Bronchitis (Acute) Bronchitis (Acute) Spinal cord stimulator status (Chronic) Liver cyst (Chronic) Psoriasis (Chronic) Acute diverticulitis (Acute) Cellulitis Diverticulitis large intestine (Acute 05/10/14) Patella fracture (Acute) UTI (lower urinary tract infection) (Acute) Hypothyroidism Past Family History Family History Other Cancer Heart disease Lung disease Past Surgical History Surgical History S/P insertion of spinal cord stimulator Social History Smoking Status: Never smoker Hx Alcohol Use: No Hx Substance Use: No Physical Exam Vital Signs Last Vital Signs Temp 36.8 C 01/07/19 07:15 Pulse 74 01/07/19 07:15 Resp 18 01/07/19 07:15 BP 114/66 01/07/19 07:15 Pulse Ox 93 01/07/19 07:15 Testing Laboratory Results 01/07/19 06:29 01/07/19 06:29 PT 10.8 Seconds (9.0-12.0) 01/05/19 17:34 INR 1.1 (0.9-1.1) 01/05/19 17:34 APTT 25.7 Seconds (21.0-31.0) 01/05/19 17:34 Urine Color Dark Yellow 01/05/19 17:24 Urine Appearance Turbid (Clear) A 01/05/19 17:24 Urine pH 5.5 (4.5-7.5) 01/05/19 17:24 Ur Specific [place] 1.026 (1.000-1.030) 01/05/19 17:24 Urine Protein Negative (Negative) 01/05/19 17:24 Urine Glucose (UA) Negative (Negative) 01/05/19 17:24 Urine Ketones Trace (Negative) H 01/05/19 17:24 Urine Nitrite Negative (Negative) 01/05/19 17:24 Ur Leukocyte Esterase Negative (Negative) 01/05/19 17:24 Urine WBC (Auto) 1-5 /hpf (0-5) 01/05/19 17:24 Urine RBC (Auto) 0-4 /hpf (0-4) 01/05/19 17:24 U Hyaline Cast (Auto) 1-5 /lpf (0-5) 01/05/19 17:24 U Epithel Cells (Auto) >30 /lpf (0-5) H 01/05/19 17:24 Urine Bacteria (Auto) Negative (Negative) 01/05/19 17:24 01/05/19 23:18 Escherichia coli Shiga Toxins Test - Preliminary Stool Stool Culture - Preliminary No Salmonella isolated to date, No Shigella isolated to date, No Campylobacter jejuni isolated to date. Electrocardiogram Date: 01/07/19 Findings: + NSR @ (71) Chest X-Ray Date: 01/04/19 Findings: + NAD
[2019-01-07] MEDS: KETOROLAC 30 MG/ML VIAL IV PRN ×2 (11:58→18:46)
[2019-01-07] MEDS ORDERED: ERTAPENEM SODIUM 1,000 MG in SODIUM CHLORIDE 0.9% 50 ML IV ONE (12:00)
[2019-01-07] MEDS ORDERED: DEXAMETHASONE SOD INJ 4 MG/ML VIAL ONE (14:23)
[2019-01-07] MEDS ORDERED: fentaNYL citrate 100 MCG/2 ML VIAL ONE ×2 (14:23→16:32)
[2019-01-07] MEDS ORDERED: ONDANSETRON INJ 2 MG/ML 2 ML VIAL ONE (14:23)
[2019-01-07] MEDS ORDERED: PROPOFOL IV EMULSION 10 MG/ML 20 ML VIAL IV ONE (14:23)
[2019-01-07] MEDS ORDERED: LIDOCAINE HCL 2% 2 ML VIAL/AMP(20MG/ML) INFIL ONE (14:23)
[2019-01-07] MEDS ORDERED: MIDAZOLAM HCL 1 MG/ML 2ML VIAL ONE ×2 (14:23→16:32)
[2019-01-07] MEDS ORDERED: ATROPINE SULFATE 0.1 MG/ML 10ML SYR IV PRN (15:49)
[2019-01-07] MEDS ORDERED: ePHEDrine sulfate 50 MG/ML AMP IV PRN (15:49)
[2019-01-07] MEDS ORDERED: HYDROmorphone INJ 1 MG/ML SYRINGE IV PRN (15:49)
[2019-01-07] MEDS ORDERED: ONDANSETRON INJ 2 MG/ML 2 ML VIAL IV PRN (15:49)
--- NOTE | 2019-01-07 16:03 | Hospitalist Progress Note ---
Date of Service January 07, 2019 Assessment & Plan (1) Calculus, ureteral: CT a/p on 01/04 showed 5 mm nonobstructing stone within the distal left ureter. No left-sided hydronephrosis. UA on 01/05 was negative for infection or blood. - Strain urine daily - Continue tamsulosin - Urology following - Plan for lithotripsy today - Unasyn was changed to amoxicillin because it was thought it was Enterococcus; however, culture was found, and it was actually Enterobacter with some resistances. - Ertapenem started on 01/07. Plan to switch to Bactrim for duration of the antibiotics per urology. (2) Acute kidney injury: Baseline Cr is ~1.0. On admission, Cr was 1.2, then 1.4. No hydronephrosis found on the CT of the abdomen. - Cr back to 1.0 on 01/07 (3) Bronchitis: Stable. - Continue fluticasone propionate/salmetrol, montelukast. (4) Diarrhea: Diarrhea could be caused by recent use of antibiotics or possibly laxatives. Patient stated that she was constipated but did not use any medication as a laxative. - C. diff testing was negative on 01/05 - Follow up results of stool for ova & parasites (5) Hypertriglyceridemia: Stable. - Continue fenofibrate 150 mg p.o. daily (6) Insomnia: Stable continue gabapentin 400 mg nightly. (7) DVT (deep venous thrombosis): Heparin 5000 Q12h Subjective Still with some discomfort. Plan for lithotripsy today. Review of Systems Constitutional: no fever, no chills and no sweats Eyes: no diplopia Ear, Nose, Mouth, Throat: no ear trauma, no nasal discharge and no dental pain Respiratory: no cough, no chest congestion and no dyspnea Cardiovascular: no chest pain, no dyspnea on exertion, no palpitations and no syncope Gastrointestinal: no abdominal pain, no belching, no constipation, no diarrhea/loose stools, no blood in stools and no melena Genitourinary: + urinary urgency Musculoskeletal: no back pain, no joint pain and no muscle weakness Integumentary: no rash, no skin ulcer and no erythema Neurologic: no generalized weakness, no loss of sensation, no numbness and no paresthesia Psychiatric: no depression and no anxiety Endocrine: no fatigue, no polydipsia and no polyphagia Physical Exam Constitutional: WD/WN, vitals as above Eyes: EOM intact bilaterally; no conjunctival abnormality ENMT: external ear and nose normal, oropharynx normal Neck: trachea midline, no thyromegaly normal visual inspection Respiratory: normal respiratory effort, lungs clear to auscultation no respiratory distress Cardiovascular: RRR, no murmur, no edema Gastrointestinal (Abdomen): Inspection/Auscultation: abdomen normal to inspection; abdomen not distended Musculoskeletal: no cyanosis or clubbing, extremities motor strength 5/5 Skin: no rashes, warm and dry Neurologic: moves all extremities and awake Psychiatric: Orientation: alert, oriented to person and cooperative Results & Data Vital Signs (Past 12 Hours) Vital Signs Temp Pulse Resp BP Pulse Ox 01/07/19 15:04 36.6 C 68 16 105/66 93 01/07/19 07:15 36.8 C 74 18 114/66 93 PG Care Time/CCT Total # of Minutes Spent Total Time Spent with Patient: Total time spent is greater than 50% in coordination of care (as documented) at patient's floor/unit and/or counseling patient:
[2019-01-07] MEDS ORDERED: IOTHALAMATE MEGLUMINE II 17.2% 250 ML VIAL ONE (16:59)
[2019-01-07] MEDS ORDERED: ePHEDrine sulfate 50 MG/ML SYR ONE (17:30)
--- NOTE | 2019-01-07 17:34 | Operative Report ---
Post Operative Report Pre & Post Diagnosis Operation Date: 01/07/19 14:35 Pre-Op Diagnosis: PAIN, VOMITING, EXHAUSTION, KIDNEY STONE Left Post-Op Diagnosis: PAIN, VOMITING, EXHAUSTION, KIDNEY STONE Left Procedure Operation Date: 01/07/19 14:35 Actual Procedures p Cystoscopy,Left retrograde pyelogram, Left semi-ridged Ureteroscopy, Basket extraction , Left Stent Placement(Left) - Rishabh Garcia II, DO Surgeon Rishabh Garcia, II, DO Recording Clerk None Estimated Blood Loss 1 Findings Consistent with Post-Op Diagnosis Specimens Stone left distal ureter Drains 6 Fr Multilength Anesthesia Type General Complications none Disposition Disposition: Recovery Room Indications Obstructing stone. Risks and benefits discussed. Description of Procedure Patient was consented and brought back to the operating room. Patient was placed under anesthesia in the supine position and moved to the dorsal lithotomy position. Patient was prepped and draped in the regular sterile fashion. A time out was completed. A 30degree Cystoscope was placed into the bladder and the entire bladder was examined. The UO's were identified. The UO was cannulized with a catheter and a retrograde pyelogram was completed. A wire was then placed. The Rigid ureteroscope was taken into the ureter. The stone was identified. This was then grasped and removed and sent for analysis. The entire area was once again examined. No residual large fragments or areas of concern were noted. The scope was slowly removed with the wire left in place. Contrast was placed through the scope for a pyelogram to assist in stent placement. The entire ureter was examined as the scope was slowly removed. No obstructions or other areas of concern were noted. With the wire in place, a 6 Fr Double J stent was placed. It was confirmed with fluoroscopy. With the stent in place, the bladder was emptied. The scope was removed. The patient was cleaned, aroused from anesthesia, and transferred to the pacu in stable condition having tolerated the procedure well with no complications. I was present and participated in all aspects of the procedure. The patient will be monitored in the PACU until transferred. I attest to the content of the Intraoperative Record and any orders documented therein. Any exceptions are noted below.
--- NOTE | 2019-01-07 17:45 | Fluoroscopy Report ---
FL retrograde includes kub HISTORY: Stent placement. FLUOROSCOPY TIME: 25 seconds FINDINGS: Mild fluoroscopic spot images were submitted for review. Retrograde opacification of the le ft renal collecting system with placement of a ureteral stent. The stent appears to be a good positio n. IMPRESSION: Fluoroscopy provided for left ureteral stent placement. Electronically signed by: Randall Hooks M.D. 01/07/2019 5:44 PM
[2019-01-07] MEDS: fentaNYL citrate 100 MCG/2 ML VIAL IV PRN ×4 (17:53→18:08)
--- NOTE | 2019-01-07 18:33 | Anesthesiology Progress Note ---
Date of Service January 07, 2019 Anesthesia Post Procedure Vital Signs Vital Signs: Temp Pulse Pulse Resp BP BP Pulse Ox 01/07/19 18:20 76 14 140/75 97 01/07/19 18:10 36.4 C L 75 14 126/68 96 01/07/19 18:00 81 14 139/76 95 01/07/19 17:50 85 17 142/81 H 94 01/07/19 17:44 36.2 C L 94 H 17 145/79 H 94 01/07/19 16:13 37.1 C 78 15 117/71 95 01/07/19 16:02 36.7 C 82 18 115/69 94 01/07/19 15:04 36.6 C 68 16 105/66 93 01/07/19 07:15 36.8 C 74 18 114/66 93 01/06/19 23:08 36.7 C 74 16 110/65 95 Pain Intensity Left Flank: Pain Intensity: 6 Transfer of Care Handoff Completed per policy Notes Mental Status: alert / awake / arousable and participated in evaluation Patient Amnestic to Procedure: Yes Nausea / Vomiting: adequately controlled Pain: adequately controlled Airway Patency, RR, SpO2: stable & adequate BP & HR: stable & adequate Hydration State: stable & adequate Anesthetic Complications: no major complications apparent and Pt Satisfied with anesthetic care
[2019-01-07] MEDS: TAMSULOSIN HCL 0.4 MG CAP PO SCH (20:08)
[2019-01-07] MEDS: GABAPENTIN 400 MG CAP PO SCH (20:08)
[2019-01-08] MEDS: HYDROCODONE/ACETAMOPHEN 5/325MG TAB PO PRN ×3 (00:15→08:26)
[2019-01-08] MEDS: SODIUM CHLORIDE 0.9% 1000ML 1,000 ML IV SCH ×2 (00:22→08:25)
[2019-01-08] MEDS: KETOROLAC 30 MG/ML VIAL IV PRN ×2 (00:58→10:03)
[2019-01-08] MEDS: LEVOTHYROXINE SODIUM 125 MCG TABLET PO SCH (06:29)
[2019-01-08] MEDS: FLUTICASONE/SALMETEROL 250/50 (ADVAIR) 14 PUFF/1 INHALER INH SCH (08:25)
[2019-01-08] MEDS: MONTELUKAST SODIUM 10 MG TABLET PO SCH (08:26)
[2019-01-08] MEDS: FENOFIBRATE NANOCRYSTALLIZED 145 MG TABLET PO SCH (08:26)
[2019-01-08] MEDS: SULFAMETHOXAZOLE/TRIMETHOPRIM DS 800/160MG TAB PO SCH ×2 (09:59→15:32)
--- NOTE | 2019-01-08 11:16 | Urology Progress Note ---
Date of Service January 08, 2019 Assessment & Plan (1) Calculus, ureteral: POD #1 s/p cysto, left ureteroscopy, laser litho, stent placement. Appears to be tolerating stent. Recommend discharge with 3 days antibiotic coverage. Outpatient follow up with our service has been arranged. Thank you for allowing us to participate in the inpatient care of Ms. Ramos. Please contact us if we can be of further assistance. Subjective 63 YO female POD #1 s/p cystoscopy, left laser litho, stent placement. Patient reports some left abdominal/groin discomfort last night but feeling better this AM. No fevers/chills. No nausea/vomiting. Voiding spontaneously +intermittent hematuria. Reports feeling ready for discharge today. Review of Systems Review of Systems: All systems reviewed & are unremarkable except as noted in HPI & below Physical Exam Physical Exam: WN/WD NAD. Resp effort normal. No JVD. Abd soft/nontender. : bladder nontender/nondistended. A&Ox3 appropriate affect. Results & Data Vital Signs (Past 12 Hours) Vital Signs Temp Pulse Pulse Resp BP BP Pulse Ox 01/08/19 09:44 36.9 C 95 H 18 106/64 95 01/08/19 03:03 36.8 C 95 H 16 99/62 L 97 01/08/19 00:19 142/81 H 01/08/19 00:17 105 H 01/07/19 23:31 36.6 C 99 H 18 130/76 97
--- NOTE | 2019-01-08 13:53 | Discharge Summary ---
Date of Service January 08, 2019 Admission HPI Per Admitting Provider Patient is a 63 years old female with past medical history of diverticulitis of the large intestine, patellar fracture, psoriasis, bronchitis, recurrent urinary tract infections, who presented to the emergency room with a complaint of protracted nausea and vomiting that started yesterday and continued whole day long. Patient was seen 7 days ago by her PCP and started on Spectra for urinary tract infection. 3 days later urinary culture was available which showed enterococcus and patient was switched to Bactrim. So patient has been regularly taking Bactrim since Friday last week and this morning she started to have severe nausea and vomiting. Patient was yesterday in the ER and CT scan shown a 1. A 5 mm nonobstructing stone within the distal left ureter. No left-sided hydronephrosis. 2. No bowel wall thickening or obstruction. 3. Normal appendix. 4. Stable 7 mm nodule within the right middle lobe. This demonstrates greater than two-year stability and is therefore likely benign. Today labs showed creatinine of 1.38 GFR over 40.3, BUN of 14 hemoglobin of 12.2 hematocrit of 36.1 white blood cell count of 4.56, platelets 226. Er physician discussed the patient's case with Dr. Pearson- Urology. He agrees to be on consult and wants the patient admitted to the hospital and keep NPO after midnight for possible lithotripsy in the morning. Continue copious fluid IV hydration and started on antibiotics to cover for enterococcus/Unasyn. Principal Diagnosis Kidney stone Discharge Exam Constitutional WD/WN, vitals as above Eyes EOM intact bilaterally; no conjunctival abnormality ENMT external ear and nose normal, oropharynx normal Neck trachea midline, no thyromegaly normal visual inspection Respiratory normal respiratory effort, lungs clear to auscultation no respiratory distress Cardiovascular RRR, no murmur, no edema Gastrointestinal (Abdomen) Inspection/Auscultation: abdomen normal to inspection; abdomen not distended Musculoskeletal no cyanosis or clubbing, extremities motor strength 5/5 Skin no rashes, warm and dry Neurologic moves all extremities and awake Psychiatric Orientation: alert, oriented to person and cooperative Discharge Data Allergies Allergy/AdvReac Type Severity Reaction Status Date / Time bupropion Allergy Intermediate Tachycardia Verified 01/04/19 16:03 chlorhexidine Allergy Unknown Rash Verified 01/04/19 16:03 mold Allergy Unknown . Verified 01/04/19 16:03 pollen extracts Allergy Unknown . Verified 01/04/19 16:03 levofloxacin AdvReac Severe Leg pain Verified 01/04/19 16:03 Consultations 01/05/19 18:23 ED Decision to Admit Stat 01/05/19 21:36 Consult Urology Routine Procedures Performed Operation Date: 01/07/19 14:35 Actual Procedures p Cystoscopy,Left retrograde pyelogram, Left semi-ridged Ureteroscopy, Basket extraction, (Left) - Rishabh Garcia II, DO s Left Stent Placement - Rishabh Garcia II, DO Ordered Studies 01/07/19 11:20 FL retrograde includes kub Routine Hospital Course (1) Calculus, ureteral: CT a/p on 01/04 showed 5 mm nonobstructing stone within the distal left ureter. No left-sided hydronephrosis. UA on 01/05 was negative for infection or blood. - Dr. Garcia performed basket extraction and stent placement on 01/07. - Will need 3 days more of abx. Discussed in detail with patient. - Outpatient follow up for stent removal in office. (2) Acute kidney injury: Baseline Cr is ~1.0. On admission, Cr was 1.2, then 1.4. No hydronephrosis found on the CT of the abdomen. - Cr back to 1.0 on 01/07 (3) Bronchitis: Stable. - Continue fluticasone propionate/salmetrol, montelukast. (4) Diarrhea: Diarrhea could be caused by recent use of antibiotics or possibly laxatives. Patient stated that she was constipated but did not use any medication as a laxative. - C. diff testing was negative on 01/05 - Stool culture negative. - Diarrhea resolving by 01/08; likely abx related. (5) Hypertriglyceridemia: Stable. - Continue fenofibrate 150 mg p.o. daily (6) Insomnia: Stable continue gabapentin 400 mg nightly. (7) DVT (deep venous thrombosis): Heparin 5000 Q12h Total Time Total Time Spent Total Time Spent (In Minutes): 45 Discharge Plan Discharge Items Patient Disposition: Home - Self-Care Reason For Visit: PAIN, VOMITING, EXHAUSTION, KIDNEY STONE Discharge Diagnosis: Kidney stone Discharge Goals: Decrease discomfort and Therapeutic intervention Activity: Resume your previous activity Non-emergency contact: Primary Care Provider and Urologist Call non-emergency contact if: your symptoms worsen, your pain is not controlled and your temperature is above 101 Follow-up/Referrals: Rishabh Garcia II, DO [Physician] - Tremaine Motley MD [Primary Care Provider] - 01/13/19 10:10 am (Please, follow up at Dr. Motley's office with her associate, Dr. Park, on FridayJanuary 13 at 10:10 am. *If you need to change this appointment, call the office at [phone].) Diet: Regular Addtl Provider Instructions: Ms. Ramos, You were admitted to the hospital with a kidney stone that was causing nausea, vomiting, and pain in the side and groin. Dr. Garcia removed a kidney stone and put in a stent to help keep the urine flowing freely. We would like you to get 3 more days total of antibiotics just to be sure all the Enterobacter bacteria are gone. You should get 2 doses of Bactrim in the hospital. Please take 4 more doses (2 days worth). Take 1 tablet 2 times per day. Your last dose will be the evening of 01/10/2019. Please contact the urology office or come to the hospital if you start to have fevers, worsening pain, nausea, vomiting, or other concerning symptoms. Prescriptions: New phenazopyridine [Pyridium] 100 mg tablet 100 mg PO TID PRN (Reason: pain) 3 Days Qty: 9 RF: 0 Continued fluticasone propion-salmeterol 250-50 mcg/dose blister with device 1 inh inhalation BID RF: 0 gabapentin 800 mg tablet 400 mg PO HS RF: 0 levothyroxine 125 mcg tablet 125 mcg PO DAILY RF: 0 montelukast 10 mg tablet 10 mg PO DAILY RF: 0 fenofibrate 160 mg tablet 150 mg PO DAILY RF: 0 sulfamethoxazole-trimethoprim [Bactrim DS] 800-160 mg tablet 1 tab PO Q12H Qty: 7 RF: 0 tamsulosin [Flomax] 0.4 mg capsule 0.4 mg PO HS Qty: 7 RF: 0 hydrocodone-acetaminophen [Mosinee] 5-325 mg tablet 1 tab PO Q4H PRN (Reason: Pain) RF: 0 ondansetron HCl [Zofran] 4 mg tablet 4 mg PO Q6H PRN (Reason: Nausea And Vomiting) RF: 0 Stand-Alone Forms: [facility] Discharge Orders: Discharge Order (Routine); Ordered 01/08/19 Ordered By: Juan A Sagastume Admission Data Admit Date/Time: 01/07/19 10:14 Attending Provider: Juan A Sagastume Admit Provider: Arslan Munguia Primary Care Provider: Tremaine Motley Other Providers: Juan A Sagastume ; Arslan Munguia ; Imtiaz Bailey Service: Medical Other Interventions: Discharge Summary Assessment (RN) Last Done: 01/08/19 11:39
[2019-01-18 08:34] LABS: Component 2 DNR; Source Kidney
== END 2019-01-08 15:54 | disposition home or self-care (01) | DRG 660 ==
LOC: ED 17:05 → 3W 17:05 → SUATTDRO 20:43 → 3W 21:20